=== PATIENT | female | born 1990 | race Caucasian/White ===

== ENCOUNTER 2017-12-28 06:13 | Inpatient (IN) | payer MEDICAID ==
[~2017-12-28] VITALS: Ht 149.9 cm; Wt 77.1 kg
[2017-12-28] MEDS ORDERED: DEXT 5%/LR + PITOCIN 20UNITS/L 1,000 ML IV SCH (06:28)
[2017-12-28] MEDS ORDERED: NALOXONE HCL 0.4 MG/ML 1ML VIAL IM PRN (06:30)
[2017-12-28] MEDS ORDERED: CARBOPROST TROMETHAMINE 250 MCG/ML AMPUL IM PRN (06:30)
[2017-12-28] MEDS ORDERED: METHYLERGONOVINE MALEATE 0.2 MG/ML IM PRN (06:30)
[2017-12-28] MEDS ORDERED: FERR325T6 MT (06:34)
[2017-12-28] MEDS ORDERED: PNV1TABL76 MT (06:34)
[2017-12-28] MEDS ORDERED: OCD PO (06:34)
[2017-12-28] MEDS: LACTATED RINGERS 1,000 ML IV SCH ×2 (07:09→07:55)
[2017-12-28] MEDS ORDERED: CITRIC ACID/SODIUM CITRATE SOLN 30ML UDC PO NR (07:12)
[2017-12-28] MEDS ORDERED: PHENYLEPHRINE HCL 10 MG/ML 1ML (IV VIAL) IV ONE (07:19)
[2017-12-28] MEDS ORDERED: DIPHENHYDRAMINE 50MG/ML VIAL ONE (07:19)
[2017-12-28] MEDS ORDERED: EPHEDRINE SULFATE 50MG/ML VIAL ONE (07:19)
[2017-12-28] MEDS ORDERED: ONDANSETRON HCL 4MG/2ML VIAL ONE (07:19)
[2017-12-28] MEDS ORDERED: OXYTOCIN 10 UNITS/ML 1ML ONE (07:19)
[2017-12-28] MEDS ORDERED: CEFAZOLIN 2000MG PREMIX 50 ML IV ONE (07:19)
[2017-12-28] MEDS ORDERED: GLYCOPYRROLATE 0.2 MG/ML 2ML VIAL ONE (07:19)
[2017-12-28] MEDS ORDERED: SODIUM CHLORIDE 0.9% 10ML VIAL ONE (07:22)
[2017-12-28 07:28] LABS: BASOPHILS % 0.4 % (0.0-2.0); EOSINOPHILS % 0.9 % (0.0-5.0); HEMATOCRIT. 31.5 % (36.0-48.0); LYMPHOCYTES % 28.1 % (20.0-50.0); MEAN CORPUSCULAR HEMOGLOBIN 22.3 pg (28.0-32.0); MEAN CORPUSCULAR VOLUME 70.3 fL (81.0-99.0); MEAN PLATELET VOLUME 8.1 fl (7.4-10.4); MONOCYTES % 6.4 % (2.0-8.0); NEUTROPHILS % 64.2 % (40.0-76.0); PLATELET 328 x1000/uL (130-400); RED BLOOD CELL COUNT 4.48 mill/uL (4.2-5.4); RED CELL DISTRIBUTION WIDTH 24.1 % (11.6-14.6)
[2017-12-28] MEDS ORDERED: FENTANYL CITRATE/PF 50MCG/ML 2ML VIAL ONE (07:28)
[2017-12-28] MEDS ORDERED: MORPHINE SULFATE/PF 1MG/ML 10ML AMP ONE (07:28)
[2017-12-28 07:31] LABS: INR 0.9; PARTIAL THROMBOPLASTIN TIME 23.8 sec (23.4-31.0); PROTHROMBIN TIME 9.7 sec (9.4-11.6)
[2017-12-28 08:17] LABS: OPIATES URINE SCREEN NEGATIVE (NEGATIVE)
[2017-12-28 08:18] LABS: *AMPHETAMINES SCREEN URINE NEGATIVE (NEGATIVE); *BARBITURATES SCREEN URINE NEGATIVE (NEGATIVE); *BENZODIAZEPINES SCREEN URINE NEGATIVE (NEGATIVE); *COCAINE SCREEN URINE NEGATIVE (NEGATIVE); CANNABINOID URINE SCREEN NEGATIVE (NEGATIVE); PHENCYCLIDINE URINE SCREEN NEGATIVE (NEGATIVE)
[2017-12-28 08:19] LABS: METHADONE URINE SCREEN NEGATIVE (NEGATIVE)
[2017-12-28 08:42] LABS: KETONES URINE NEGATIVE (NEGATIVE); LEUKOCYTE ESTERASE URINE NEGATIVE (NEGATIVE); NITRITE URINE NEGATIVE (NEGATIVE); OCCULT BLOOD URINE NEGATIVE (NEGATIVE); PH URINE 6.5 (4.5-8.0); PROTEIN URINE NEGATIVE (NEGATIVE); SPECIFIC GRAVITY URINE 1.016 (1.005-1.030)
[2017-12-28 08:45] LABS: CLARITY URINE HAZY (CLEAR); COLOR URINE YELLOW (YELLOW)
[2017-12-28] MEDS ORDERED: IBUPROFEN 400MG TABLET PO PRN (10:30)
[2017-12-28] MEDS ORDERED: HYDROMORPHONE HCL/PF 2MG/ML CPJ IM PRN (10:30)
[2017-12-28] MEDS ORDERED: RHO(D) IMMUNE GLOBULIN 300 MCG/SYR IM PRN (10:30)
[2017-12-28] MEDS ORDERED: BISACODYL 10MG SUPP PR PRN (10:30)
[2017-12-28] MEDS ORDERED: ACETAMINOPHEN WITH CODEINE 300/30MG TABLET PO PRN (10:30)
[2017-12-28] MEDS ORDERED: NALOXONE HCL 0.4 MG/ML 1ML VIAL IV PRN (10:45)
[2017-12-28] MEDS ORDERED: DIPHENHYDRAMINE 50MG/ML VIAL IV PRN (10:45)
[2017-12-28] MEDS ORDERED: BUTORPHANOL TARTRATE 2 MG/ML VIAL IV PRN (10:45)
[2017-12-28] MEDS ORDERED: KETOROLAC 30MG/ML VIAL IV PRN (11:00)
[2017-12-28 11:18] LABS: HEPATITIS B SURFACE ANTIGEN NEGATIVE; RUBELLA IGG 11.7 IU/mL (4.99-10)
[2017-12-28 12:56] VITALS: BP 111/63
[2017-12-28 13:25] VITALS: BP 114/58
[2017-12-28 13:55] VITALS: BP 100/53
[2017-12-28 14:13] LABS: PLATELET ESTIMATE NORMAL
[2017-12-28] MEDS: DEXT 5%/LR + PITOCIN 20UNITS/L 1,000 ML IV SCH ×2 (15:30→23:03)
[2017-12-28 22:00] VITALS: BP 101/55
[2017-12-29 06:00] VITALS: BP 110/58
[2017-12-29 06:50] LABS: BASOPHILS % 0.3 % (0.0-2.0); EOSINOPHILS % 0.8 % (0.0-5.0); HEMATOCRIT. 26.2 % (36.0-48.0); HEMOGLOBIN. 8.4 g/dL (12.0-16.0); LYMPHOCYTES % 19.3 % (20.0-50.0); MEAN CORPUSCULAR HEMOGLOBIN 22.6 pg (28.0-32.0); MEAN CORPUSCULAR VOLUME 70.6 fL (81.0-99.0); MEAN PLATELET VOLUME 7.8 fl (7.4-10.4); MONOCYTES % 6.5 % (2.0-8.0); NEUTROPHILS % 73.1 % (40.0-76.0); PLATELET 261 x1000/uL (130-400); RED BLOOD CELL COUNT 3.71 mill/uL (4.2-5.4)
[2017-12-29 09:02] VITALS: BP 103/62
[2017-12-29] MEDS: IBUPROFEN 800MG TABLET PO PRN (15:17)
[2017-12-29 15:27] VITALS: BP 106/70
[2017-12-29 22:00] VITALS: BP 108/63
[2017-12-30] MEDS: IBUPROFEN 800MG TABLET PO PRN ×2 (03:45→20:26)
[2017-12-30 06:00] VITALS: BP 105/65
[2017-12-30 08:15] VITALS: BP 104/59
[2017-12-30 16:20] VITALS: BP 118/75
[2017-12-30 19:45] VITALS: BP 118/71
[2017-12-30 23:45] VITALS: BP 114/76
[2017-12-31 03:45] VITALS: BP 118/84
[2017-12-31 08:00] VITALS: BP 125/85
[2017-12-31] MEDS: IBUPROFEN 800MG TABLET PO PRN (09:54)
== END 2017-12-31 10:50 | disposition home or self-care (01) | DRG 540 ==
LOC: L&D 06:13 → OBSVTOIN 06:13 → L&D 10:36 → 7EST PP/OB 12:40
PROVIDERS: ADMIT Obstetrics & Gynecology; ATTEND Obstetrics & Gynecology
PROC: 10D00Z1 Extraction of Products of Conception, Low, Open Approach (ICD-10-PCS; principal; 2017-12-28 09:55)
DX: O34.219 Maternal care for unspecified type scar from previous cesarean delivery (principal); D64.9 Anemia, unspecified; O99.02 Anemia complicating childbirth; Z37.0 Single live birth; Z3A.39 39 weeks gestation of pregnancy
CPT/HCPCS: 36415; 80305; 81003; 85025; 85610; 85730; 86592; 86703; 86762; 86850; 86900; 86920; 87340; 88307; A4216; J0690; J1200; J1885; J2274; J2370; J2405; J2590; J3010; J3490; J7120; A4315

== ENCOUNTER 2018-07-24 18:22 | Emergency (ER) | payer SELFPAY ==
[~2018-07-24] VITALS: Ht 149.9 cm; Wt 77.0 kg
[~2018-07-24 18:22] MED LIST: FERR325T6 MT; OCD PO; PNV1TABL76 MT
[2018-07-24 18:32] VITALS: BP 122/61
== END 2018-07-25 00:35 | disposition left against medical advice (07) ==
LOC: ER 18:22
DX: R10.11 Right upper quadrant pain (principal); Z53.21 Procedure and treatment not carried out due to patient leaving prior to being seen by health care provider

== ENCOUNTER 2019-07-07 15:34 | Observation (INO) | payer MEDICAID ==
[~2019-07-07] VITALS: Ht 149.9 cm; Wt 76.2 kg
[2019-07-07] MEDS ORDERED: ACETAMINOPHEN 500MG TABLET PO SCH (16:30)
[2019-07-07] MEDS ORDERED: ONDANSETRON HCL 4MG/2ML INJ IV PRN (16:30)
[2019-07-07] MEDS ORDERED: DEXT 5%/LACTATED RINGERS 1,000 ML IV SCH (16:30)
[2019-07-07 17:51] LABS: CHLORIDE 103 mEq/L (98-107)
[2019-07-07 17:58] LABS: BASOPHILS % 0.3 % (0.0-2.0); HEMATOCRIT. 26.4 % (36.0-48.0); HEMOGLOBIN. 8.2 g/dL (12.0-16.0); LYMPHOCYTES % 7.5 % (20.0-50.0); MEAN CORPUSCULAR HEMOGLOBIN 20.4 pg (28.0-32.0); MEAN CORPUSCULAR VOLUME 65.2 fL (81.0-99.0); MEAN PLATELET VOLUME 7.2 fl (7.4-10.4); MONOCYTES % 10.4 % (2.0-8.0); NEUTROPHILS % 81.8 % (40.0-76.0); PLATELET 334 x1000/uL (130-400); RED BLOOD CELL COUNT 4.05 mill/uL (4.2-5.4); RED CELL DISTRIBUTION WIDTH 18.9 % (11.6-14.6)
[2019-07-07 18:05] LABS: CLARITY URINE CLOUDY (CLEAR); COLOR URINE DARK YELLOW (YELLOW); KETONES URINE 3+ (NEGATIVE); LEUKOCYTE ESTERASE URINE 2+ (NEGATIVE); NITRITE URINE POSITIVE (NEGATIVE); OCCULT BLOOD URINE TRACE (NEGATIVE); PH URINE 5.5 (4.5-8.0); PROTEIN URINE 2+ (NEGATIVE); SPECIFIC GRAVITY URINE 1.016 (1.005-1.030)
[2019-07-07 18:08] LABS: PLATELET ESTIMATE NORMAL
[2019-07-07] MEDS ORDERED: CEFAZOLIN 2,000 MG in DEXT 5% WATER 100 ML IV NR (19:00)
[2019-07-08] MEDS ORDERED: ACETAMINOPHEN 500MG TABLET PO NR (00:30)
[2019-07-08] MEDS: CEFAZOLIN 1000MG PREMIX 50 ML IV SCH ×2 (02:37→08:43)
[2019-07-08 05:52] LABS: HEMATOCRIT 22.6 % (36.0-48.0); HEMOGLOBIN 7.2 g/dL (12.0-16.0); MEAN CORPUSCULAR HEMOGLOBIN 20.6 pg (28.0-32.0); MEAN CORPUSCULAR VOLUME 64.4 fL (81.0-99.0); PLATELET 291 x1000/uL (130-400); RED BLOOD CELL COUNT 3.51 mill/uL (4.2-5.4); RED CELL DISTRIBUTION WIDTH 18.6 % (11.6-14.6)
== END 2019-07-08 09:36 | disposition home or self-care (01) ==
LOC: 8 EST LDRP 15:34
PROVIDERS: ADMIT Obstetrics & Gynecology; ATTEND Obstetrics & Gynecology
DX: O26.899 Other specified pregnancy related conditions, unspecified trimester (principal); R51 Headache; R10.30 Lower abdominal pain, unspecified; O21.2 Late vomiting of pregnancy; O36.8190 Decreased fetal movements, unspecified trimester, not applicable or unspecified; Z3A.00 Weeks of gestation of pregnancy not specified
CPT/HCPCS: 36415; 76805; 80053; 81003; 85025; 85027; 87040; 87077; 87086; 87186; 96365; 96366; 96375; 99281; G0378; J0690; J2405; J7060; 96360; 96361

== ENCOUNTER 2019-10-17 12:44 | Observation (INO) | payer OTHER | END 2019-10-17 14:30 | disposition home or self-care (01) | LOC: 8 EST LDRP 12:44 | PROVIDERS: ADMIT Obstetrics & Gynecology; ATTEND Obstetrics & Gynecology | DX: Z34.83 Encounter for supervision of other normal pregnancy, third trimester (principal); Z3A.38 38 weeks gestation of pregnancy; Z98.891 History of uterine scar from previous surgery | CPT/HCPCS: 59025; 76815; 76818; 99281; G0378 ==

== ENCOUNTER 2023-06-06 11:37 | Emergency (ER) | payer OTHER ==
[~2023-06-06] VITALS: Ht 149.9 cm; Wt 63.0 kg
[~2023-06-06 11:37] MED LIST changes: -OCD PO; -PNV1TABL76 MT
[2023-06-06 11:59] VITALS: O2SAT 100
[2023-06-06 12:18] LABS: CLARITY URINE CLOUDY (CLEAR); COLOR URINE YELLOW (YELLOW); GLUCOSE URINE NEGATIVE (NEGATIVE); KETONES URINE 3+ (NEGATIVE); LEUKOCYTE ESTERASE URINE 2+ (NEGATIVE); NITRITE URINE NEGATIVE (NEGATIVE); OCCULT BLOOD URINE NEGATIVE (NEGATIVE); PROTEIN URINE TRACE (NEGATIVE); SPECIFIC GRAVITY URINE 1.024 (1.005-1.030)
[2023-06-06] MEDS ORDERED: ONDANSETRON HCL 4MG/2ML INJ IV NR (12:30)
[2023-06-06] MEDS ORDERED: SODIUM CHLORIDE 0.9% 1,000 ML IV ONE (12:30)
[2023-06-06 13:11] LABS: BASOPHILS % 0.3 % (0.0-2.0); EOSINOPHILS % 0.4 % (0.0-5.0); HEMATOCRIT. 27.6 % (36.0-48.0); HEMOGLOBIN. 8.2 g/dL (12.0-16.0); LYMPHOCYTES % 19.2 % (20.0-50.0); MEAN CORPUSCULAR HEMOGLOBIN 17.5 pg (28.0-32.0); MEAN CORPUSCULAR HGB CONC 29.7 g/dL (31.0-37.0); MEAN CORPUSCULAR VOLUME 58.8 fL (81.0-99.0); MEAN PLATELET VOLUME 8.5 fl (7.4-10.4); MONOCYTES % 6.5 % (2.0-8.0); NEUTROPHILS % 73.6 % (40.0-76.0); PLATELET 419 x1000/uL (130-400); RED BLOOD CELL COUNT 4.69 mill/uL (4.2-5.4); RED CELL DISTRIBUTION WIDTH 21.2 % (11.6-14.6); WHITE BLOOD COUNT 6.4 x1000/uL (4.5-11.0)
[2023-06-06 13:15] LABS: SQUAMOUS EPITHELIAL CELL URINE 3+ /lpf (RARE/1+)
[2023-06-06 13:15] LABS: ADD RBC MORPHOLOGY YES; DIFFERENTIAL COMMENT 1
[2023-06-06 13:16] LABS: BACTERIA URINE 2+
[2023-06-06 13:22] LABS: CHLORIDE 108 mEq/L (98-107); INDEX HEMOLYSI 1 (1-3); INDEX ICTERIC 1 (1-4); INDEX LIPEMIC 1 (1-3); POTASSIUM 3.8 mEq/L (3.5-5.1); SODIUM 136 mEq/L (136-145)
[2023-06-06 13:33] LABS: ALANINE AMINOTRANSFERASE 16 IU/L (13-61); ASPARTATE AMINOTRANSFERASE 12 IU/L (15-37); BILIRUBIN TOTAL 0.6 mg/dL (0.1-1.0); CALCIUM 8.7 mg/dL (8.5-10.1); CARBON DIOXIDE 21 mEq/L (21-32); CREATININE 0.4 mg/dL (0.6-1.3); GLUCOSE 89 mg/dL (70-105); PROTEIN TOTAL 8.1 g/dL (6.0-8.3); UREA NITROGEN BLOOD 8 mg/dL (7-21)
[2023-06-06 13:52] LABS: ANISOCYTOSIS 2+; MICROCYTOSIS 3+; PLATELET ESTIMATE SLIGHTLY INCREASED
[2023-06-06 14:25] LABS: B-HCG QUANTITATIVE 84013 mIU/mL (<3)
[2023-06-06] MEDS ORDERED: PYRIDOXINE 100 MG/ML 1ML IM NR (16:15)
[2023-06-06] MEDS ORDERED: DEXT 5%/0.9% NACL 1,000 ML IV ONE (16:15)
[2023-06-06] MEDS ORDERED: NITROFURANTOIN 100MG M/M CAPSULE PO SCH (17:00)
[2023-06-06 20:48] VITALS: BP 114/68; PULSE 66; RESP 18; TEMP 95.7
== END 2023-06-06 21:53 | disposition short-term general hospital (02) ==
LOC: ER 11:52
DX: O21.0 Mild hyperemesis gravidarum (principal); Z3A.08 8 weeks gestation of pregnancy
CPT/HCPCS: 99285; 76801; 80053; 81003; 81025; 84702; 85025; 86850; 86900; 86901; 87086; 87186; 87077; 36415; 76817; J3415